=== PATIENT | female | born 1940 | race Caucasian/White ===

== ENCOUNTER → 2016-08-14 | Outpatient (CLI) | payer OTHER | LOC: MMPC 11:11 | PROVIDERS: ATTEND Internal Medicine | DX: R10.84 Generalized abdominal pain (principal); K52.9 Noninfective gastroenteritis and colitis, unspecified; F41.8 Other specified anxiety disorders | CPT/HCPCS: 99214; G0463 ==

== ENCOUNTER → 2016-09-06 | Outpatient (CLI) | payer OTHER | LOC: MMPC 11:11 | PROVIDERS: ATTEND Internal Medicine | DX: F41.8 Other specified anxiety disorders (principal); K52.832 Lymphocytic colitis; K22.2 Esophageal obstruction; K57.30 Diverticulosis of large intestine without perforation or abscess without bleeding | CPT/HCPCS: 99213; G0463 ==